=== PATIENT | male | born 1970 | race Caucasian/White ===

== ENCOUNTER 2019-07-29 09:52 | Outpatient (CLI) | payer OTHER, SELFPAY ==
--- NOTE | ~2019-07-29 | XR_ITS ---
XR lumbar spine min 4V DATE: 07/29/2019 10:09 INDICATION: Low back pain radiating to the legs and high into the back TECHNIQUE: AP, lateral, coned lateral lumbosacral and bilateral oblique views COMPARISON: None FINDINGS: Normal alignment of the lumbar spine. No fracture, bone destruction, spondylolysis or spond ylolisthesis. The lumbar and lumbosacral interspaces are well preserved. The sacroiliac joints are no rmal. IMPRESSION: Negative Reviewed, dictated and finalized at location A. IMPRESSION: Negative
== END 2019-07-29 09:53 | disposition home or self-care (01) ==
PROVIDERS: PCP Nurse Practitioner; Visit Provider Nurse Practitioner
DX: M54.5 Low back pain (principal)
CPT/HCPCS: 72110